=== PATIENT | female | born 1955 | race Caucasian/White ===

== ENCOUNTER 2023-03-29 08:46 | Outpatient (REF) | payer OTHER, SELFPAY ==
[2023-03-29 11:17] LABS: MANUAL DIFF FLAG NO
[2023-03-29 11:40] LABS: Basophils Percent Auto 0.7 % (0-2); Eosinophils Absolute Auto 0.1 X10*3/uL (0.0-0.4); Eosinophils Percent Auto 2.2 % (0-4); Hematocrit 42.1 % (37.0-47.0); Hemoglobin 13.9 g/dl (12.0-16.0); Imm Gran Abs Auto 0.01 X10*3/uL (0.00-0.03); Imm Gran Pct Auto 0.2 % (0.0-0.4); Lymphocytes Absolute Auto 1.9 X10*3/uL (1.2-4.9); Lymphocytes Percent Auto 41.9 % (20-40); Mean Corpuscular Hemoglobin 33.4 pg (27.0-33.0); Mean Corpuscular Volume 101.2 fL (80.0-98.0); Mean Platelet Volume 10.8 fL (9.4-12.3); Monocytes Absolute Auto 0.5 X10*3/uL (0.1-1.2); Monocytes Percent Auto 10.4 % (2-11); Neutrophils Percent Auto 44.6 % (45-73); Platelet Count 260 X10*3/uL (160-400); Red Blood Count 4.16 X10*6/uL (4.20-5.50); Red Cell Distribution Width 14.4 % (11.0-16.0); White Blood Count 4.5 X10*3/uL (4.8-10.8)
[2023-03-29 12:06] LABS: Alanine Aminotransferase 20 U/L (0-31); Albumin Level 4.4 g/dL (3.5-5.0); Alkaline Phosphatase 59 U/L (39-117); Anion Gap 12 (12-20); Aspartate Amino Transferase 23 U/L (5-31); Bilirubin Total 0.6 mg/dL (0.0-1.0); Blood Urea Nitrogen 16 mg/dL (9-16); Calcium 9.9 mg/dL (8.4-10.2); Carbon Dioxide 27 mmol/L (22-29); Chloride 107 mmol/L (96-108); Cholesterol 287 mg/dL; Estimated Glomerular Filt Rate > 60; Glucose Fasting 99 mg/dL (60-99); HDL Cholesterol 92 mg/dL; LDL Cholesterol Calculated 171 mg/dl; Potassium 3.8 mmol/L (3.3-5.1); Sodium 142 mmol/L (135-145); TSH reflex Free T4 0.99 uIU/mL (0.32-4.0); Total Protein 7.4 g/dL (6.5-8.0); Triglycerides 122 mg/dL; Vitamin D 25-OH Total 55.8 ng/mL (>30)
[2023-03-29 12:15] LABS: Vitamin B12 375 pg/mL (200-900)
== END 2023-03-29 08:47 | disposition home or self-care (01) ==
LOC: HO.HMGCLDS 08:46
PROVIDERS: PCP Internal Medicine; Visit Provider Internal Medicine
DX: Z00.00 Encounter for general adult medical examination without abnormal findings (principal); E53.8 Deficiency of other specified B group vitamins; J42 Unspecified chronic bronchitis; E78.5 Hyperlipidemia, unspecified
CPT/HCPCS: 36415; 80053; 80061; 82306; 82607; 84443; 85025

== ENCOUNTER 2023-04-12 07:25 | Outpatient (REF) | payer OTHER, SELFPAY ==
--- NOTE | ~2023-04-12 | MM_ITS ---
EXAMINATION: MM SCREENING DIGITAL BREAST TOMOSYNTHESIS, BILATERAL CLINICAL INFORMATION: Screening. Asymptomatic. The lifetime risk of breast cancer based on the Tyrer-Cuzick Model is 5%. COMPARISON: Mammography: 07/10/2020, 01/03/2019 TECHNIQUE: Digital breast tomosynthesis is performed in both the craniocaudal and mediolateral oblique views along with computer-aided detection (CAD). Synthesized 2D images are generated from the tomosynthesis. FINDINGS: There are scattered areas of fibroglandular density (ACR BI-RADS breast composition Category b). Breast tissue composition borders on predominantly fatty. Background stromal and fibroglandular densities are similar to prior exam and there is no significant mass or architectural abnormality or abnormal calcifications. The axilla and skin contours are unremarkable. MM/MM tomosynthesis screening BI IMPRESSION: No mammographic evidence of malignancy. ASSESSMENT: BI-RADS 1: Negative RECOMMENDATION: Routine annual mammography screening. This patient's information was entered into a reminder system with a target due date for their next mammogram.
--- NOTE | ~2023-04-12 | MM_ITS ---
EXAMINATION: BONE DENSITOMETRY CLINICAL INDICATION: Age-related osteoporosis without current pathological fracture. COMPARISON: Baseline BD dated 02/08/2018. TECHNIQUE: Using a Loaded [employer] DXA System (software version: 13.1) manufactured by [employer], dual-energy x-ray absorptiometry was performed of the lumbar spine and left hip. The images are of good technical quality. Summary results are attached. FINDINGS: LEFT FEMUR, NECK: Current: BMD 0.641 g/cm2, Z-score -1.5, T-score -2.9, osteoporosis. Baseline: BMD 0.777 g/cm2. LEFT FEMUR, TOTAL: Current: BMD 0.741 g/cm2, Z-score -1.1, T-score -2.1, osteopenia, 5.8% decrease from baseline (<5% change is not significant). Baseline: BMD 0.787 g/cm2. AP SPINE L1-L3 (excluding L4): The data of L1-L4 has been changed to exclude the L4 vertebral body, because degenerative changes at this level may cause overestimation of lumbar spine density. Current: BMD 0.936 g/cm2, Z-score -0.6, T-score -2.0, osteopenia, 0.1% decrease from baseline (<5% change is not significant). Baseline: BMD 0.937 g/cm2. IDENTIFIED RISK FACTORS: Early menopause, secondary osteoporosis, osteoporosis, history of fracture (adult), height loss, low calcium intake, glucocorticoids (chronic). HISTORY OF FRACTURE: Ankle. MEDICATIONS: Calcium supplements or multivitamin, vitamin D. MM/XR DEXA axial skeleton IMPRESSION: 1. DIAGNOSIS: Osteoporosis based on the lowest T-score value of -2.9 in the femoral neck applying World Health Organization criteria. 2. 10-YEAR FRACTURE RISK PREDICTION, FRAX: According to the guidelines, FRAX calculation should only be performed on patients in the osteopenia bone density category. Therefore, FRAX was not performed on this patient. 3. Treatment Recommendations: NOF guidelines recommend consideration for treatment in postmenopausal women and men age 50 and older presenting with the following: -A hip or vertebral (clinical or morphometric) fracture. -T-score less than or equal to -2.5 at the femoral neck or spine after appropriate evaluation to exclude secondary causes. -Low bone mass at the hip or spine and a 10-year fracture probability by FRAX of greater than or equal to 3% for hip fracture or greater than or equal to 20% for major osteoporotic fracture based on the [place] adapted WHO algorithm. 4. Other Recommendations: All treatment decisions require clinical judgment and consideration of individual patient factors, including patient preferences, comorbidities, previous drug use, risk factors not captured in the FRAX model (e.g. frailty, falls, vitamin D deficiency, increased bone turnover, interval significant decline in bone density) and possible under or overestimation of fracture risk by FRAX. Additional medical evaluation for secondary cause of low bone mineral density may be appropriate. FUTURE SCAN RECOMMENDATION: People with diagnosed cases of osteoporosis or at high risk for fracture should have regular bone mineral density tests. For patients eligible for Medicare, routine testing is allowed once every 2 years. The testing frequency can be increased to one year for patients who have rapidly progressing disease, those who are receiving or discontinuing medical therapy to restore bone mass, or have additional risk factors.
== END 2023-04-12 07:26 | disposition home or self-care (01) ==
LOC: HO.MAMMO 07:25
PROVIDERS: PCP Internal Medicine; Visit Provider Internal Medicine
DX: Z12.31 Encounter for screening mammogram for malignant neoplasm of breast (principal); Z13.820 Encounter for screening for osteoporosis; Z78.0 Asymptomatic menopausal state; M81.0 Age-related osteoporosis without current pathological fracture
CPT/HCPCS: 77063; 77067; 77080

== ENCOUNTER 2024-05-06 07:11 | Outpatient (REF) | payer OTHER, SELFPAY ==
[2024-05-06 10:14] LABS: MANUAL DIFF FLAG NO
[2024-05-06 10:19] LABS: Basophils Absolute Auto 0.1 X10*3/uL (0.0-0.2); Eosinophils Absolute Auto 0.2 X10*3/uL (0.0-0.4); Eosinophils Percent Auto 2.9 % (0-4); Hematocrit 40.4 % (37.0-47.0); Hemoglobin 13.5 g/dl (12.0-16.0); Imm Gran Abs Auto 0.02 X10*3/uL (0.00-0.03); Imm Gran Pct Auto 0.3 % (0.0-0.4); Lymphocytes Absolute Auto 2.7 X10*3/uL (1.2-4.9); Lymphocytes Percent Auto 46.3 % (20-40); Mean Corpuscular HGB Conc 33.4 g/dl (31.0-35.0); Mean Corpuscular Hemoglobin 34.1 pg (27.0-33.0); Mean Platelet Volume 10.6 fL (9.4-12.3); Monocytes Absolute Auto 0.5 X10*3/uL (0.1-1.2); Monocytes Percent Auto 9.2 % (2-11); Neutrophils Absolute Auto 2.3 x10*3/uL (2.0-8.3); Neutrophils Percent Auto 40.3 % (45-73); Platelet Count 250 X10*3/uL (160-400); Red Blood Count 3.96 X10*6/uL (4.20-5.50); White Blood Count 5.8 X10*3/uL (4.8-10.8)
[2024-05-06 10:47] LABS: Alanine Aminotransferase 38 U/L (0-31); Albumin Level 4.3 g/dL (3.5-5.0); Alkaline Phosphatase 69 U/L (39-117); Anion Gap 15 (12-20); Aspartate Amino Transferase 33 U/L (5-31); Bilirubin Total 0.4 mg/dL (0.0-1.0); Blood Urea Nitrogen 19 mg/dL (9-16); Calcium 9.8 mg/dL (8.4-10.2); Carbon Dioxide 25 mmol/L (22-29); Chloride 107 mmol/L (96-108); Cholesterol 182 mg/dL (<200); Estimated Glomerular Filt Rate > 60; Glucose Fasting 95 mg/dL (60-99); HDL Cholesterol 78 mg/dL (>40); LDL Cholesterol Calculated 77 mg/dL (<100); Sodium 143 mmol/L (135-145); Total Protein 6.9 g/dL (6.5-8.0); Triglycerides 135 mg/dL (<150)
[2024-05-06 10:48] LABS: TSH reflex Free T4 2.47 uIU/mL (0.32-4.0); Vitamin D 25-OH Total 59.8 ng/mL (>30)
[2024-05-06 12:48] LABS: Vitamin B12 258 pg/mL (200-900)
== END 2024-05-06 07:12 | disposition home or self-care (01) ==
LOC: HO.HMGCLDS 07:11
PROVIDERS: PCP Internal Medicine; Visit Provider Internal Medicine
DX: Z00.00 Encounter for general adult medical examination without abnormal findings (principal); E78.5 Hyperlipidemia, unspecified; E53.8 Deficiency of other specified B group vitamins
CPT/HCPCS: 36415; 80053; 80061; 82306; 82607; 84443; 85025

== ENCOUNTER 2024-05-08 07:52 | Outpatient (REF) | payer OTHER, SELFPAY ==
--- NOTE | ~2024-05-08 | MM_ITS ---
EXAMINATION: MM SCREENING DIGITAL BREAST TOMOSYNTHESIS, BILATERAL CLINICAL INFORMATION: Screening. Asymptomatic. The patient is status post bilateral breast reduction. COMPARISON: Mammography: This study is compared with prior exams dating back to 2019. TECHNIQUE: Digital breast tomosynthesis is performed in both the craniocaudal and mediolateral oblique views along with computer-aided detection (CAD). Synthesized 2D images are generated from the tomosynthesis. FINDINGS: The breasts are almost entirely fatty (ACR BI-RADS breast composition Category a). There are no significant masses, abnormal calcifications, or other abnormalities. MM/MM tomosynthesis screening BI IMPRESSION: No mammographic evidence of malignancy. ASSESSMENT: BI-RADS BI-RADS 1 - Negative RECOMMENDATION: Routine annual mammography screening. 1 year F/U This examination should not preclude the clinical evaluation of a suspicious palpable abnormality. This patient's information was entered into a reminder system with a target due date for their next mammogram.
== END 2024-05-08 07:53 | disposition home or self-care (01) ==
LOC: HO.MAMMO 07:52
PROVIDERS: PCP Internal Medicine; Visit Provider Internal Medicine
DX: Z12.31 Encounter for screening mammogram for malignant neoplasm of breast (principal)
CPT/HCPCS: 77063; 77067

== ENCOUNTER → 2024-05-08 08:15 | Outpatient (BNV) | payer OTHER, SELFPAY | PROVIDERS: PCP Internal Medicine; Visit Provider Radiology Diagnostic Radiology | DX: Z12.31 Encounter for screening mammogram for malignant neoplasm of breast (principal) | CPT/HCPCS: 77063; 77067 ==

== ENCOUNTER 2024-05-08 10:32 | Outpatient (AMB) | payer OTHER, SELFPAY ==
[2024-05-08 10:36] VITALS: BP 134/78; PULSE 91; O2SAT 97; BMI 33.8
--- NOTE | 2024-05-08 10:36 | A.OFFPC_ITS ---
Vital Signs 05/08/24 10:36 Height 5 ft Weight 173 lb BMI 33.8 BP 134/78 Blood Pressure Location Lt brachial Position Sitting Pulse 91 Pulse Source Pulse Oximeter Pulse Oximetry (%) 97 Oxygen Delivery Method Room Air Intake Visit Reasons: PE celina from 04/09/24 Intake Note: Pt is here today for PE. Allergies No Known Allergies Allergy (Mild, Verified 05/08/24 10:39) NONE Medication List - Last Reconciled 05/08/24 by Elvia Bellamy MD alendronate 70 mg PO QWEEK aspirin 81 mg PO DAILY multivitamin 1 tab PO DAILY rosuvastatin 20 mg PO DAILY Tobacco use date assessed: 05/08/24 Fall risk assessment: 1 Fall in past year Last assessed Fall Risk: 05/08/24 Dental Screening Dental Screen Date: 05/08/24 Did you have a dental visit in the last 12 months?: Yes Did you have a dental problem in the last 6 months where you did not have access to dental care?: No Was dental information given to patient?: Patient has dentist HPI PE celina from 04/09/24 HPI Details Pt presents for PE. Pt c/o worsening positional vertigo and difficulty with balance. She fell of the chair at work. Pt denies diplopia, weakness in extremities, headaches. Patient complains of feeling depressed and not motivated to exercise because of her 's health issues and he used to exercise with her regularly. Patient denies change in her sleep pattern, appetite or suicide ideation PFSH Medical History (Updated 05/08/24 @ 11:20 by Elvia Bellamy MD) Normal pelvic exam Hx of mammogram Annual physical exam OA (osteoarthritis) of knee Anxiety Chronic bronchitis Sciatica of right side Depression Hyperlipidemia Osteoporosis Chronic asthma Surgical History H/O colonoscopy S/P aneurysm repair History of repair of rotator cuff History of knee surgery History of adenoidectomy History of tonsillectomy Family History Father Cancer Lung cancer Substance use disorder Mother FH: HTN (hypertension) Cancer Substance use disorder Brother Substance use disorder Social History Housing: House Patient Tobacco Use Status: Former Tobacco user e-Cigarette/Vaping Use: Never Used service: No Current occupational status: employed Cognitive needs: No Hearing needs: No Vision needs: No Questionnaire PHQ-9 Over the last 2 weeks, how often have you been bothered by any of the following problems? 1. Little interest or pleasure in doing things: several days 2. Feeling down, depressed, or hopeless: several days 3. Trouble falling or staying asleep, or sleeping too much: not at all 4. Feeling tired or having little energy: not at all 5. Poor appetite or overeating: several days 6. Feeling bad about yourself - or that you are a failure or have let yourself or your family down: several days 7. Trouble concentrating on things, such as reading the newspaper or watching television: not at all 8. Moving or speaking so slowly that other people could have noticed. Or the opposite - being so fidgety or restless that you have been moving around a lot more than usual: not at all 9. Thoughts that you would be better off or of hurting yourself in some way: not at all Total score: 4 Depression Screening Interpretation: Negative Depression Screening Done: Yes 66953 - PHQ-9 Billing: Yes Source: Developed by Drs. Kishan Awad, Felicia Awad, Steve Hernandez and colleagues, with an educational dayanara from [employer]. Thrive Questionnaire Date Thrive assessed: 05/08/24 I am a: Patient What is your living situation today?: I have a steady place to live Within the past 12 months, did the food you bought not last and you didn't have the money to get more?: Never true Within the past 12 months, did you worry whether your food would run out before you got money to buy more?: Never true Do you have trouble paying for medicines?: No Do you have trouble getting transportation to medical appointments?: No Do you have trouble paying your heating and electricity bill?: No Do you have trouble taking care of your child, family member or friend?: No Do you have trouble with day-to-day activities such as bathing, preparing meals, shopping, managing finances, etc.?: No Are you currently unemployed and looking for a job?: No Are you interested in more education?: Yes Please select the resources that you would like help with: Housing/Group Home Currently or been in a relationship where the following occur: No concerns reported THRIVE Score: 0 AUDIT C Alcohol Use Questionnaire (AUDIT-C) 1. How often do you have a drink containing alcohol?: 2-3 times a week 2. How many drinks containing alcohol do you have on a typical day when you are drinking?: 1 or 2 3. How often do you have six or more drinks on one occasion?: Never Total Score: 3 CLAY-7 AMB Questionnaire CLAY-7 Date CLAY - 7 assessed: 05/08/24 Feeling nervous, anxious, or on edge: 1 = Several days Not being able to stop or control worryin = Several days Worrying too much about different things: 1 = Several days Trouble relaxin = Several days Being so restless that it is hard to sit still: 1 = Several days Becoming easily annoyed or irritable: 1 = Several days Feeling afraid as if something awful might happen: 0 = Not at all Total CLAY-7 score (0-4 normal; 5-9 mild; 10-14 moderate; 15-21 severe): 6 Source: Developed by Drs. Kishan Awad, Felicia Awad, Steve Hernandez and colleagues, with an educational dayanara from [employer]. Review of Systems Const All systems reviewed & are unremarkable except as noted in HPI and below Eyes Reports no additional complaints ENT Reports no additional complaints Card Reports no additional complaints Resp Reports no additional complaints GI Reports no additional complaints Reports no additional complaints Physical exam (Primary Care) Vital Signs: Last Vital Signs Pulse 91 05/08/24 10:36 BP 134/78 05/08/24 10:36 Pulse Ox 97 05/08/24 10:36 Oxygen Delivery Method Room Air 05/08/24 10:36 BMI result Body Mass Index 33.8 Tobacco/Smoking Status: Tobacco use Status Tobacco use date assessed 05/08/24 05/08/24 10:41 Patient Tobacco Use Status Former Tobacco user 05/08/24 10:41 e-Cigarette/Vaping Use Never Used 05/08/24 10:41 PHQ-9: PHQ-9 Score PHQ-9: Total score 4 05/08/24 10:41 Depression Screening Interpretation: Negative Thrive Assessment: Date of Thrive Assessment Date Thrive assessed 05/08/24 05/08/24 10:41 Currently or been in a relationship where the following occur: No concerns reported Const General: no acute distress HENMT Head: Yes normal to inspection Ears: hearing grossly normal bilaterally Face and sinus: Yes normal facial exam Mouth: Normal oral and palatal mucosa present Eyes General: appearance normal, both eyes and all related structures Neck Neck: Yes no lymphadenopathy and Yes supple Resp Effort & Inspection: normal respiratory effort Auscultation: clear to auscultation bilaterally Cardio Rhythm: regular rhythm Heart sounds: S1 normal heart sound present and S2 normal heart sound present GI Inspection: Yes normal to inspection Palpation (GI): Soft to palpation Percussion: Yes normal to percussion Auscultation: normal bowel sounds Neuro General: CN's II-XI intact bilaterally Cognition (Neuro): normal cognition Gait exam (Neuro): Ataxic gait present Motor exam (neuro): 5/5 motor strength present throughout Romberg Test: Positive Extrem General: Yes no clubbing, cyanosis or edema Assessment and Plan Assessment & Plan (1) Hyperlipidemia: Code(s): E78.5 - Hyperlipidemia, unspecified Plan: Continue crestor (2) Annual physical exam: Code(s): Z00.00 - Encounter for general adult medical examination without abnormal findings Plan: Well-balanced diet regular exercise discussed with the patient she is up-to-date with the mammogram colonoscopy and DEXA (3) Chronic bronchitis: Comment: Mild, patient does not use inhalers Code(s): J42 - Unspecified chronic bronchitis (4) Central positional vertigo: Comment: worsening, positive Romberg Code(s): H81.4 - Vertigo of central origin Plan: obtain brain MRI to evaluate for cerebellar pathology like CVA or tumor (5) Anxiety: Code(s): F41.9 - Anxiety disorder, unspecified Plan: Stress management discussed with the patient she was advised to start regular physical activity and Zoloft 25 mg for 1st week then increase to 50 mg will be started. Follow-up in 2 months Orders: Orders PT Evaluation and Treatment Today H81.4 - Vertigo of central origin MR head/brain wo con Today R29.818 - Other symptoms and signs involving the nervous system Medications: New sertraline 1/2 tabl for 1 week, then 1 tabl qd 50 mg PO DAILY 30 tabs 2RF albuterol sulfate 90 mcg/actuation 2 puffs inhalation Q6H PRN 6.7 grams 1RF shortness of breath or wheezing Coding Level of Care Code Est Pt Prev Care >65y(58432) Diagnoses Hyperlipidemia E78.5 Annual physical exam Z00.00 Chronic bronchitis J42 Central positional vertigo H81.4 Anxiety F41.9
== END 2024-05-08 11:11 | disposition home or self-care (01) ==
PROVIDERS: PCP Internal Medicine; Visit Provider Internal Medicine
DX: E78.5 Hyperlipidemia, unspecified (principal); Z00.00 Encounter for general adult medical examination without abnormal findings; J42 Unspecified chronic bronchitis; H81.4 Vertigo of central origin; F41.9 Anxiety disorder, unspecified
CPT/HCPCS: 99397

== ENCOUNTER 2024-08-17 09:16 | Outpatient (REF) | payer OTHER, SELFPAY ==
--- NOTE | ~2024-08-17 | MR_ITS ---
EXAMINATION: MR BRAIN WITHOUT CONTRAST CLINICAL INFORMATION: Positive cerebellar signs COMPARISON: None available. TECHNIQUE: MRI of the brain was obtained using routine sequences without contrast. FINDINGS: There is mild periventricular and subcortical white matter hyperintensity most likely representing microangiopathic disease. Incidental cavum septum pellucidum. There is no focus of reduced diffusivity or abnormal susceptibility artifact within the brain parenchyma. The midline structures including the corpus callosum, cerebellar vermis, and pituitary gland are normal in appearance. There is no acute intracranial hemorrhage, acute ischemic changes, mass, mass effect, or extra-axial fluid collection. There is no midline shift or hydrocephalus. The basal subarachnoid cisterns and cerebral sulci are not effaced. The major intracranial flow voids are present, and grossly unremarkable. MR/MR head/brain wo con IMPRESSION: 1. Mild microangiopathic disease. 2. No acute intracranial abnormality. Electronically signed by: Anastasiya Fernandez MD 08/17/2024 11:37 AM EDT
== END 2024-08-17 09:17 | disposition home or self-care (01) ==
LOC: HO.MRI 09:16
PROVIDERS: PCP Internal Medicine; Visit Provider Internal Medicine
DX: R29.818 Other symptoms and signs involving the nervous system (principal)
CPT/HCPCS: 70551

== ENCOUNTER 2024-09-04 10:57 | Outpatient (AMB) | payer OTHER, SELFPAY ==
--- NOTE | 2024-09-04 10:58 | MHC.PC.OV ---
Vital Signs 09/04/24 10:59 Height 5 ft Weight 174 lb BMI 34.0 BP 134/78 Blood Pressure Location Lt brachial Position Sitting Pulse 81 Pulse Source Pulse Oximeter Pulse Oximetry (%) 98 Oxygen Delivery Method Room Air Intake Visit Reasons: 3 month follow up Intake Note: Pt is here today for 3 months follow up visit. Pt states that she is still having vertigo episodes. Allergies No Known Allergies Allergy (Mild, Verified 09/04/24 11:03) NONE Medication List - Last Reconciled 09/04/24 by Elvia Bellamy MD albuterol sulfate 90 mcg/actuation 2 puffs inhalation Q6H PRN alendronate 70 mg PO QWEEK aspirin 81 mg PO DAILY multivitamin 1 tab PO DAILY rosuvastatin 20 mg PO DAILY sertraline 50 mg PO DAILY Tobacco use date assessed: 09/04/24 Dental Screening Dental Screen Date: 05/08/24 HPI 3 month follow up HPI Details Pt presents for chronic anxiety, better on Zoloft. Patient has been seeing counselor once a month. hyperlipid is stable on Crestor. Patient reports persistent positional vertigo almost on daily basis but denies nausea or vomiting change in balance or vision [facility] Medical History (Updated 09/04/24 @ 11:35 by Elvia Bellamy MD) Normal pelvic exam Hx of mammogram Annual physical exam OA (osteoarthritis) of knee Anxiety Chronic bronchitis Sciatica of right side Depression Hyperlipidemia Osteoporosis Chronic asthma Surgical History H/O colonoscopy S/P aneurysm repair History of repair of rotator cuff History of knee surgery History of adenoidectomy History of tonsillectomy Family History Father Cancer Lung cancer Substance use disorder Mother FH: HTN (hypertension) Cancer Substance use disorder Brother Substance use disorder Social History Housing: House Patient Tobacco Use Status: Former Tobacco user e-Cigarette/Vaping Use: Never Used service: No Current occupational status: employed Cognitive needs: No Hearing needs: No Vision needs: No Questionnaire PHQ-9 Over the last 2 weeks, how often have you been bothered by any of the following problems? 1. Little interest or pleasure in doing things: several days 2. Feeling down, depressed, or hopeless: several days 3. Trouble falling or staying asleep, or sleeping too much: not at all 4. Feeling tired or having little energy: more than half the days 5. Poor appetite or overeating: more than half the days 6. Feeling bad about yourself - or that you are a failure or have let yourself or your family down: several days 7. Trouble concentrating on things, such as reading the newspaper or watching television: not at all 8. Moving or speaking so slowly that other people could have noticed. Or the opposite - being so fidgety or restless that you have been moving around a lot more than usual: not at all 9. Thoughts that you would be better off or of hurting yourself in some way: not at all Total score: 7 Depression Screening Interpretation: Negative Depression Screening Done: Yes 70194 - PHQ-9 Billing: Yes Source: Developed by Drs. Kishan Awad, Felicia Awad, Steve Hernandez and colleagues, with an educational dayanara from [employer]. Thrive Questionnaire Date Thrive assessed: 05/06/24 I am a: Patient What is your living situation today?: I have a steady place to live Within the past 12 months, did the food you bought not last and you didn't have the money to get more?: Never true Within the past 12 months, did you worry whether your food would run out before you got money to buy more?: Never true Do you have trouble paying for medicines?: No Do you have trouble getting transportation to medical appointments?: No Do you have trouble paying your heating and electricity bill?: No Do you have trouble taking care of your child, family member or friend?: No Do you have trouble with day-to-day activities such as bathing, preparing meals, shopping, managing finances, etc.?: No Are you currently unemployed and looking for a job?: No Are you interested in more education?: Yes Please select the resources that you would like help with: None Currently or been in a relationship where the following occur: No concerns reported THRIVE Score: 0 CLAY-7 AMB Questionnaire CLAY-7 Date CLAY - 7 assessed: 05/08/24 Source: Developed by Drs. Kishan Awad, Felicia Awad, Steve Hernandez and colleagues, with an educational dayanara from [employer]. Review of Systems Const All systems reviewed & are unremarkable except as noted in HPI and below ENT Reports no additional complaints Card Reports no additional complaints Resp Reports no additional complaints GI Reports no additional complaints Reports no additional complaints Physical exam (Primary Care) Vital Signs: Last Vital Signs Pulse 81 09/04/24 10:59 BP 134/78 09/04/24 10:59 Pulse Ox 98 09/04/24 10:59 Oxygen Delivery Method Room Air 09/04/24 10:59 BMI result Body Mass Index 34.0 Tobacco/Smoking Status: Tobacco use Status Tobacco use date assessed 09/04/24 09/04/24 11:05 Patient Tobacco Use Status Former Tobacco user 09/04/24 11:05 e-Cigarette/Vaping Use Never Used 09/04/24 11:05 Depression Screening Interpretation: Negative Thrive Assessment: Date of Thrive Assessment Date Thrive assessed 05/06/24 09/04/24 11:05 Currently or been in a relationship where the following occur: No concerns reported Const General: no acute distress HENMT Ears: hearing grossly normal bilaterally Mouth: Normal oral and palatal mucosa present Resp Effort & Inspection: normal respiratory effort Auscultation: wheezes Cardio Rhythm: regular rhythm Heart sounds: S1 normal heart sound present and S2 normal heart sound present Coding Level of Care Code Est Pt Level 4 (02932) Complex EM visit Add On G2211 Diagnoses Vertigo R42 Hyperlipidemia E78.5 Anxiety F41.9 Vitamin D deficiency E55.9 Chronic bronchitis J42 Additional Codes PHQ-9 - 99967 - PHQ-9 Billing: Yes ([id number]) Assessment & Plan Assessment & Plan (1) Vertigo: Code(s): R42 - Dizziness and giddiness Category: Medical Plan: refer to PT (2) Hyperlipidemia: Code(s): E78.5 - Hyperlipidemia, unspecified Category: Medical Plan: Continue crestor (3) Anxiety: Code(s): F41.9 - Anxiety disorder, unspecified Category: Medical Plan: Continue Zoloft and counseling (4) Vitamin D deficiency: Code(s): E55.9 - Vitamin D deficiency, unspecified Category: Medical Plan: Continue vitamin-D supplement (5) Chronic bronchitis: Comment: Mild, patient does not use inhalers Code(s): J42 - Unspecified chronic bronchitis Category: Medical Plan: restart Breo and continue albuterol p.r.n. Orders: Orders Comprehensive [place]. Panel Fast 9 Months E55.9 - Vitamin D deficiency, unspecified, E78.5 - Hyperlipidemia, unspecified, F41.9 - Anxiety disorder, unspecified Complete Blood Count Auto Diff 9 Months E55.9 - Vitamin D deficiency, unspecified, E78.5 - Hyperlipidemia, unspecified, F41.9 - Anxiety disorder, unspecified Vitamin D 25-OH Total 9 Months E55.9 - Vitamin D deficiency, unspecified, E78.5 - Hyperlipidemia, unspecified, F41.9 - Anxiety disorder, unspecified PT Evaluation and Treatment Today R42 - Dizziness and giddiness Lipid Panel 9 Months E55.9 - Vitamin D deficiency, unspecified, E78.5 - Hyperlipidemia, unspecified, F41.9 - Anxiety disorder, unspecified TSH reflex Free T4 9 Months E55.9 - Vitamin D deficiency, unspecified, E78.5 - Hyperlipidemia, unspecified, F41.9 - Anxiety disorder, unspecified Medications: New Breo Ellipta 100-25 mcg/dose (fluticasone furoate-vilanterol) 1 inh inhalation DAILY 60 ea 0RF NS Refilled rosuvastatin 20 mg PO DAILY 90 tabs 3RF alendronate 70 mg PO QWEEK 10 tabs 3RF sertraline 50 mg PO DAILY 90 tabs 3RF albuterol sulfate 90 mcg/actuation 2 puffs inhalation Q6H PRN 6.7 grams 1RF shortness of breath or wheezing
[2024-09-04 10:59] VITALS: BP 134/78; PULSE 81; O2SAT 98; BMI 34.0
== END 2024-09-04 11:48 | disposition home or self-care (01) ==
PROVIDERS: PCP Internal Medicine; Visit Provider Internal Medicine
DX: R42 Dizziness and giddiness (principal); E78.5 Hyperlipidemia, unspecified; F41.9 Anxiety disorder, unspecified; J42 Unspecified chronic bronchitis; E55.9 Vitamin D deficiency, unspecified

== ENCOUNTER → 2024-09-04 10:57 | Outpatient (BNVA) | payer OTHER, SELFPAY | PROVIDERS: PCP Internal Medicine; Visit Provider Internal Medicine | DX: R42 Dizziness and giddiness (principal); E78.5 Hyperlipidemia, unspecified; F41.9 Anxiety disorder, unspecified; E55.9 Vitamin D deficiency, unspecified; J42 Unspecified chronic bronchitis; Z79.899 Other long term (current) drug therapy | CPT/HCPCS: 96127 ==

== ENCOUNTER 2024-11-04 08:05 | Outpatient (AMB) | payer OTHER, SELFPAY ==
[2024-11-04 08:06] VITALS: BP 136/80; PULSE 75; TEMP 36.6; O2SAT 98
--- NOTE | 2024-11-04 08:06 | MHC.OFFWIV ---
Intake Vital Signs 11/04/24 08:06 Height 5 ft BP 136/80 Blood Pressure Location Rt brachial Position Sitting Pulse 75 Pulse Source Pulse Oximeter Temp 97.8 F Temp Source Oral Pulse Oximetry (%) 98 Oxygen Delivery Method Room Air Intake Visit Reasons: EP RT pinky toe injury, cold symptoms Intake Note: Pt is here today for a walk in visit. Pt c/o broken R pinky toe. Pt also states that she is very congested and cough. Patient Tobacco Use Status: Former Tobacco user Allergies No Known Allergies Allergy (Mild, Verified 11/04/24 08:10) NONE HPI HPI Comments History of Present Illness Details 69 y/o female patient who presents to the walk in clinic with c/o injury right fifth toe that happened back in September. Pt Hit her fifth toe against the chair when she was exercising. She has tried Ice/Het, NSAIDs and rest with no relief. Pain worse with closed shoes and walking for prolonged period of time. Pt is an average Skier. Pt also c/o persistent cough associated with wheezing and chest tightness for 2 weeks. Denies fevers, chills, nausea or vomiting. [facility] Medical History (Updated 10/31/24 @ 16:50 by Genet Neely MD) Normal pelvic exam Hx of mammogram Annual physical exam OA (osteoarthritis) of knee Anxiety Chronic bronchitis Sciatica of right side Depression Hyperlipidemia Osteoporosis Chronic asthma Surgical History H/O colonoscopy S/P aneurysm repair History of repair of rotator cuff History of knee surgery History of adenoidectomy History of tonsillectomy Family History Father Cancer Lung cancer Substance use disorder Mother FH: HTN (hypertension) Cancer Substance use disorder Brother Substance use disorder Social History Housing: House Patient Tobacco Use Status: Former Tobacco user e-Cigarette/Vaping Use: Never Used service: No Current occupational status: employed Cognitive needs: No Hearing needs: No Vision needs: No Review of Systems Const All systems reviewed & are unremarkable except as noted in HPI and below Physical Exam Vital Signs: Last Vital Signs Temp 97.8 F 11/04/24 08:06 Pulse 75 11/04/24 08:06 BP 136/80 11/04/24 08:06 Pulse Ox 98 11/04/24 08:06 Oxygen Delivery Method Room Air 11/04/24 08:06 Const General: cooperative and no acute distress Nutritional Appearance: overweight Orientation/consciousness: patient oriented x3 Resp Effort & Inspection: normal respiratory effort and able to speak in complete sentences Auscultation: no crackles, no rales, no rhonchi and wheezes Cardio Heart sounds: S1 normal heart sound present and S2 normal heart sound present Neuro General: patient oriented x3, gait normal and moves all extremities Extrem Right lower extremity: normal to inspection and foot Details: normal capillary refill, normal to inspection, tenderness (Mild tenderness fifth Toe. No color, no swelling), toes with normal ROM and no edema; no unusual warmth and no crepitus Left lower extremity: normal to inspection Psych Speech and movement: Normal speech and movement present Assessment & Plan Assessment & Plan (1) Cough: Code(s): R05.9 - Cough, unspecified Qualifiers: Cough type: acute Qualified Code(s): R05.1 - Acute cough Plan: Ordered Chest Xray Continue with prescribed Inhalers OTC cough remedies. (2) Crushing injury of fifth toe, right: Code(s): S97.121A - Crushing injury of right lesser toe(s), initial encounter Qualifiers: Encounter type: initial encounter Qualified Code(s): S97.121A - Crushing injury of right lesser toe(s), initial encounter Plan: Ordered Xray Ice/Hot NSAIDs for pain relief Rest Orders: Orders XR chest 2V Today R05.9 - Cough, unspecified Referrals Orthopedics Referral S97.121A - Crushing injury of right lesser toe(s), initial encounter Medications: New benzonatate 100 mg PO TID 90 caps 0RF R05.1 - Acute cough ibuprofen 800 mg PO Q8H 60 tabs 0RF S97.121A - Crushing injury of right lesser toe(s), initial encounter Coding Level of Care Code Est Pt Level 4 (89304) Diagnoses Acute cough R05.1 Cough type: acute Crushing injury of fifth toe of right foot, initial encounter S97.121A Encounter type: initial encounter Time Spent (min) 20
== END 2024-11-04 09:18 | disposition home or self-care (01) ==
PROVIDERS: PCP Internal Medicine; Visit Provider Nurse Practitioner Family
DX: R05.1 Acute cough (principal); S97.121A Crushing injury of right lesser toe(s), initial encounter

== ENCOUNTER 2024-11-04 08:05 | Outpatient (REF) | payer OTHER, SELFPAY ==
--- NOTE | ~2024-11-04 | XR_ITS ---
EXAMINATION: XR FOOT 3 OR MORE VIEWS RIGHT HISTORY: S97.121A - Crushing injury of right lesser toe(s), initial encounter COMPARISON: There are no prior studies available for comparison. FINDINGS: Three views of the right foot are submitted. Osseous mineralization is normal. There is an acute minimally displaced intra-articular fracture of the base of the 5th proximal phalanx. Deformity of the head of the proximal phalanx of the 5th toe is likely congenital in nature or related to an old ununited united fracture. There is no dislocation. The joint spaces are preserved. The soft tissues are unremarkable. XR/XR foot RT min 3V IMPRESSION: Acute minimally displaced intra-articular fracture of the base of the proximal phalanx of the 5th toe. Electronically signed by: Kishan Larkin MD 11/04/2024 08:57 AM [facility]
--- NOTE | ~2024-11-04 | XR_ITS ---
EXAMINATION: XR CHEST CLINICAL INFORMATION: R05.9 - Cough, unspecified COMPARISON: Chest with left RIBS the 2018 TECHNIQUE: 2 views of the chest were obtained. FINDINGS: No significant abnormality is noted involving the heart, lungs, mediastinum, bony thorax or soft tissues. XR/XR chest 2V IMPRESSION: Unremarkable chest examination. Electronically signed by: Singh Ramirez MD 11/04/2024 08:59 AM [facility]
== END 2024-11-04 08:06 | disposition home or self-care (01) ==
LOC: HO.HMGCX 08:05
PROVIDERS: PCP Internal Medicine; Visit Provider Nurse Practitioner Family
DX: R05.1 Acute cough (principal); S97.121A Crushing injury of right lesser toe(s), initial encounter
CPT/HCPCS: 71046; 73630

== ENCOUNTER → 2024-11-04 08:35 | Outpatient (BNV) | payer OTHER, SELFPAY | PROVIDERS: PCP Internal Medicine; Visit Provider Radiology Diagnostic Radiology | DX: R05.9 Cough, unspecified (principal); S92.511A Displaced fracture of proximal phalanx of right lesser toe(s), initial encounter for closed fracture | CPT/HCPCS: 71046; 73630 ==

== ENCOUNTER 2025-01-01 07:46 | Outpatient (AMB) | payer OTHER, SELFPAY ==
--- NOTE | 2025-01-01 08:07 | MHC.PC.OV ---
Vital Signs 01/01/25 08:08 Height 5 ft Weight 178 lb BMI 34.8 BP 132/78 Blood Pressure Location Lt brachial Position Sitting Respiration 20 Pulse 75 Pulse Source Pulse Oximeter Pulse Oximetry (%) 98 Oxygen Delivery Method Room Air Intake Visit Reasons: Followup foot injury Intake Note: Jennifer is here today for a follow up visit on foot injury. Allergies No Known Allergies Allergy (Mild, Verified 01/01/25 08:14) NONE Medication List - Last Reconciled 01/01/25 by Elvia Bellamy MD albuterol sulfate 90 mcg/actuation 2 puffs inhalation Q6H PRN alendronate 70 mg PO QWEEK aspirin 81 mg PO DAILY benzonatate 100 mg PO TID Breo Ellipta 100-25 mcg/dose (fluticasone furoate-vilanterol) 1 inh inhalation DAILY NS ibuprofen 800 mg PO Q8H ibuprofen 800 mg PO Q8H multivitamin 1 tab PO DAILY rosuvastatin 20 mg PO DAILY sertraline 50 mg PO DAILY Tobacco use date assessed: 01/01/25 Fall risk assessment: No Falls in past year Last assessed Fall Risk: 01/01/25 Dental Screening Dental Screen Date: 01/01/25 Did you have a dental visit in the last 12 months?: Yes Did you have a dental problem in the last 6 months where you did not have access to dental care?: No Was dental information given to patient?: Patient has dentist HPI Followup foot injury HPI Details patient presents for the follow-up of right foot injury. She caught her right 5th toe on the chair in mid October and developed pain and swelling. Patient was seen in urgent care on November 04 and x-rays showed acute minimal in displaced intra articular fracture of the base of proximal phalanx of the 5th toe. Patient has been wearing a hard boot but was not able to ski during the season because of the pain and not able to wear a ski boot. Chronic asthma stable on Breo. [facility] Medical History (Updated 01/01/25 @ 15:15 by Elvia Bellamy MD) Normal pelvic exam Hx of mammogram Annual physical exam OA (osteoarthritis) of knee Anxiety Chronic bronchitis Sciatica of right side Depression Hyperlipidemia Osteoporosis Chronic asthma Surgical History H/O colonoscopy S/P aneurysm repair History of repair of rotator cuff History of knee surgery History of adenoidectomy History of tonsillectomy Family History Father Cancer Lung cancer Substance use disorder Mother FH: HTN (hypertension) Cancer Substance use disorder Brother Substance use disorder Social History Housing: House Patient Tobacco Use Status: Former Tobacco user e-Cigarette/Vaping Use: Never Used service: No Current occupational status: employed Cognitive needs: No Hearing needs: No Vision needs: No Questionnaire PHQ-9 Over the last 2 weeks, how often have you been bothered by any of the following problems? 1. Little interest or pleasure in doing things: several days 2. Feeling down, depressed, or hopeless: several days 3. Trouble falling or staying asleep, or sleeping too much: not at all 4. Feeling tired or having little energy: not at all 5. Poor appetite or overeating: several days 6. Feeling bad about yourself - or that you are a failure or have let yourself or your family down: several days 7. Trouble concentrating on things, such as reading the newspaper or watching television: not at all 8. Moving or speaking so slowly that other people could have noticed. Or the opposite - being so fidgety or restless that you have been moving around a lot more than usual: not at all 9. Thoughts that you would be better off or of hurting yourself in some way: not at all Total score: 4 Depression Screening Interpretation: Negative Depression Screening Done: Yes 81850 - PHQ-9 Billing: Yes Source: Developed by Drs. Kishan Awad, Felicia Awad, Steve Hernandez and colleagues, with an educational dayanara from [employer]. Thrive Questionnaire Date Thrive assessed: 01/01/25 I am a: Patient What is your living situation today?: I have a steady place to live Within the past 12 months, did the food you bought not last and you didn't have the money to get more?: Never true Within the past 12 months, did you worry whether your food would run out before you got money to buy more?: Never true Do you have trouble paying for medicines?: No Do you have trouble getting transportation to medical appointments?: No Do you have trouble paying your heating and electricity bill?: No Do you have trouble taking care of your child, family member or friend?: No Do you have trouble with day-to-day activities such as bathing, preparing meals, shopping, managing finances, etc.?: No Are you currently unemployed and looking for a job?: No Are you interested in more education?: No Please select the resources that you would like help with: None Currently or been in a relationship where the following occur: No concerns reported THRIVE Score: 0 AUDIT C Alcohol Use Questionnaire (AUDIT-C) 1. How often do you have a drink containing alcohol?: 2-3 times a week 2. How many drinks containing alcohol do you have on a typical day when you are drinking?: 1 or 2 3. How often do you have six or more drinks on one occasion?: Never Total Score: 3 CLAY-7 AMB Questionnaire CLAY-7 Date CLAY - 7 assessed: 05/08/24 Feeling nervous, anxious, or on edge: 0 = Not at all Not being able to stop or control worryin = More than half the days Worrying too much about different things: 2 = More than half the days Trouble relaxin = More than half the days Being so restless that it is hard to sit still: 1 = Several days Becoming easily annoyed or irritable: 1 = Several days Feeling afraid as if something awful might happen: 0 = Not at all Total CLAY-7 score (0-4 normal; 5-9 mild; 10-14 moderate; 15-21 severe): 8 Source: Developed by Drs. Kishan Awad, Felicia Awad, Steve Hernandez and colleagues, with an educational dayanara from [employer]. CLAY-7 Assessment Billing CLAY-7 Assessment Tool: CLAY-7 Assessment 43172 Review of Systems Const All systems reviewed & are unremarkable except as noted in HPI and below Eyes Reports no additional complaints ENT Reports no additional complaints Card Reports no additional complaints Resp Reports no additional complaints GI Reports no additional complaints Reports no additional complaints Physical exam (Primary Care) Vital Signs: Last Vital Signs Pulse 75 01/01/25 08:08 Resp 20 01/01/25 08:08 BP 132/78 01/01/25 08:08 Pulse Ox 98 01/01/25 08:08 Oxygen Delivery Method Room Air 01/01/25 08:08 BMI result Body Mass Index 34.8 Tobacco/Smoking Status: Tobacco use Status Tobacco use date assessed 01/01/25 01/01/25 08:15 Patient Tobacco Use Status Former Tobacco user 01/01/25 08:08 e-Cigarette/Vaping Use Never Used 01/01/25 08:08 PHQ-9: PHQ-9 Score PHQ-9: Total score 4 01/01/25 08:27 Depression Screening Interpretation: Negative Thrive Assessment: Date of Thrive Assessment Date Thrive assessed 01/01/25 01/01/25 08:15 Currently or been in a relationship where the following occur: No concerns reported Const General: no acute distress HENMT Head: Yes normal to inspection Resp Effort & Inspection: normal respiratory effort Auscultation: clear to auscultation bilaterally Cardio Rhythm: regular rhythm Heart sounds: S1 normal heart sound present and S2 normal heart sound present Extrem Other: Right 5th toe PIP joint slight tenderness and soft tissue swelling no erythema or warmth Coding Level of Care Code Est Pt Level 3 (08054) Diagnoses Chronic bronchitis J42 Toe fracture, right S92.911A Additional Codes CLAY-7 Assessment Billing - CLAY-7 Assessment Tool: CLAY-7 Assessment 53088 ([id number]) PHQ-9 - 04935 - PHQ-9 Billing: Yes ([id number]) Assessment & Plan Assessment & Plan (1) Chronic bronchitis: Comment: Controlled on Breo Code(s): J42 - Unspecified chronic bronchitis Category: Medical Plan: cont Breo (2) Toe fracture, right: Comment: 5th toe intra-articular fracture of the base of the proximal phalanx 11/04/2024 Code(s): S92.911A - Unspecified fracture of right toe(s), initial encounter for closed fracture Category: Medical Plan: Supportive care
[2025-01-01 08:08] VITALS: BP 132/78; PULSE 75; RESP 20; O2SAT 98; BMI 34.8
== END 2025-01-01 09:41 | disposition home or self-care (01) ==
LOC: HO.HMCC 07:47
PROVIDERS: PCP Internal Medicine; Visit Provider Internal Medicine
DX: J42 Unspecified chronic bronchitis (principal); S92.911A Unspecified fracture of right toe(s), initial encounter for closed fracture

== ENCOUNTER → 2025-01-01 07:46 | Outpatient (BNVA) | payer OTHER, SELFPAY | PROVIDERS: PCP Internal Medicine; Visit Provider Internal Medicine | DX: S92.911D Unspecified fracture of right toe(s), subsequent encounter for fracture with routine healing (principal); J42 Unspecified chronic bronchitis | CPT/HCPCS: 96127 ==

== ENCOUNTER 2025-05-14 09:12 | Outpatient (REF) | payer OTHER, SELFPAY ==
--- OUTSIDE RECORDS SUMMARY | 2025-05-14 09:40 | XMS_ITS | Patient Health Record ---
Author Organization [facility] Address [address] [place] [address] Care Team Providers Care Record Tabulating Clerk Name Role Phone Elvia Bellamy MD Primary Care Provider Kishan Chavarria Unavailable [phone] Allergies Allergen (clinical drug ingredient) Drug/Non Drug Allergy documented on EMR Reaction Allergy Type Onset Date Status seasonal,perfumes an d smoke (uncoded) Unknown Allergy Active Reason For Referral No Information Medications Medication SIG (Take, Route, Frequency, Duration) Notes Start Date End Date Status Multi Vitamin/Minerals - as directed Ora lly once a day Active Allergy 10 MG 1 tablet Orally Once a day for 30 day(s) Active Breo Ellipta 100-25 MCG/INH 1 puff Inhal ation Once a day Active Vitamin D 2000 UNIT 1 tablet Orally Once a day for 30 day(s) Active Calcium 600 MG 1 tablet with meals Orally Once a day Active Vitamin C 500 MG 1 tablet Orally Once a day for 30 day(s) Active buPROPion HCl ER (SR) 200 MG 1 tablet Orally twice a day Active Rosuvastatin Calcium 5 MG 1 tablet Orall y Once a day Active Meloxicam 15 MG TAKE 1 TABLET BY EVERY DAY Oral Once a day/prn Active Aspir-81 81 MG 1 tablet Orally Once a day for 30 day(s) Active Immunizations Vaccine Route Administration Date Status Comme nts Influenza Unknown 08/22/2018 Administered Social History Tobacco Use: Social History Observation Description Date Details (start date - stop date) Former Smoker NA - NA Tobacco Use/Smoking Question Answer Notes Patient is a former smoker How long has it been since you last smoked? > 10 years Alcohol Screen Question Answer Notes Did you have a drink contain ing alcohol in the past year? Yes How often did you have a dri nk containing alcohol in the past year? 2 to 4 times a month (2 points) How many drinks did you have on a typical day when you were drinking in the past year? 1 or 2 drinks (0 point) How often did you have 6 or more drinks on one occasion in the past year? Never (0 point) Points 2 Interpretation Negative Section Notes: Nonsmoker; no sig alcohol Problems Problem Type SNOMED Code ICD Code Onset Dates Problem Status W/U Status Risk Notes Problem [id number] Encounter for screening for malignant neoplasm of colon (Z12.11) Active confirmed Problem [id number] Pre-procedural examination (Z01.818) Active confirmed Plan Of Treatment Future Test Test Name Order Date COLONOSCOPY 03/20/2019 Insurance Providers Payer Name Payer Address Payer Phone Subscriber Number Group Number Insured Name Patient Relationship to Insured Coverage Start Date Coverage End Date [facility] [address] [address] [place] [phone] [id number] EASTON KILLIAN Self - patient is the insured Medical (General) History Medical History History ICD Code Denies OR,DM,CVA,renal disease Asthma Hyperlipidemia Neg. 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
== END 2025-05-14 09:13 | disposition home or self-care (01) ==
LOC: HO.MAMMO 09:12
PROVIDERS: PCP Internal Medicine; Visit Provider Internal Medicine
DX: Z12.31 Encounter for screening mammogram for malignant neoplasm of breast (principal)
CPT/HCPCS: 77063; 77067

== ENCOUNTER → 2025-05-14 09:30 | Outpatient (BNV) | payer OTHER, SELFPAY | PROVIDERS: PCP Internal Medicine; Visit Provider Internal Medicine | DX: Z12.31 Encounter for screening mammogram for malignant neoplasm of breast (principal) | CPT/HCPCS: 77063; 77067 ==

== ENCOUNTER 2025-08-11 13:03 | Outpatient (AMB) | payer MEDICARE, SELFPAY ==
--- NOTE | 2025-08-11 13:13 | A.OFFPC_ITS ---
Vital Signs 08/11/25 13:14 Height 5 ft Weight 180 lb BMI 35.2 BP 126/80 Blood Pressure Location Lt brachial Position Sitting Respiration 18 Pulse 78 Pulse Source Pulse Oximeter Temp 97.6 F Temp Source Oral Pulse Oximetry (%) 98 Oxygen Delivery Method Room Air Intake Visit Reasons: PE, resched Intake Note: Pt is here today for PE. Allergies No Known Allergies Allergy (Mild, Verified 08/11/25 13:16) NONE Medication List - Last Reconciled 08/11/25 by Elvia Bellamy MD albuterol sulfate 90 mcg/actuation 2 puffs inhalation Q6H PRN alendronate 70 mg PO QWEEK aspirin 81 mg PO DAILY benzonatate 100 mg PO TID Breo Ellipta 100-25 mcg/dose (fluticasone furoate-vilanterol) 1 inh inhalation DAILY NS ibuprofen 800 mg PO Q8H ibuprofen 800 mg PO Q8H multivitamin 1 tab PO DAILY rosuvastatin 20 mg PO DAILY sertraline 50 mg PO DAILY Tobacco use date assessed: 08/11/25 Fall risk assessment: No Falls in past year Last assessed Fall Risk: 08/11/25 Dental Screening Dental Screen Date: 01/01/25 HPI PE, resched HPI Details Pt presents for PE. Pt c/o neck and LBP for 1 week after cleaning the office. Pt's brother has been dxd with metastatic colon cancer and patient has been involved with his care and feeling overwhelmed. Depression is controlled on current medications. Patient has been taking rosuvastatin for hyperlipidemia. She has not been taking Breo regularly and denies a need to use albuterol more than twice a month. [facility] Medical History (Updated 08/11/25 @ 16:03 by Elvia Bellamy MD) Normal pelvic exam Hx of mammogram Annual physical exam OA (osteoarthritis) of knee Anxiety Sciatica of right side Depression Hyperlipidemia Osteoporosis Chronic asthma Surgical History H/O colonoscopy S/P aneurysm repair History of repair of rotator cuff History of knee surgery History of adenoidectomy History of tonsillectomy Family History Father Cancer Lung cancer Substance use disorder Mother FH: HTN (hypertension) Cancer Substance use disorder Brother Substance use disorder Social History Housing: House Patient Tobacco Use Status: Former Tobacco user e-Cigarette/Vaping Use: Never Used service: No Current occupational status: employed Cognitive needs: No Hearing needs: No Vision needs: No Questionnaire PHQ-9 Over the last 2 weeks, how often have you been bothered by any of the following problems? 1. Little interest or pleasure in doing things: several days 2. Feeling down, depressed, or hopeless: several days 3. Trouble falling or staying asleep, or sleeping too much: several days 4. Feeling tired or having little energy: several days 5. Poor appetite or overeating: several days 6. Feeling bad about yourself - or that you are a failure or have let yourself or your family down: not at all 7. Trouble concentrating on things, such as reading the newspaper or watching television: not at all 8. Moving or speaking so slowly that other people could have noticed. Or the opposite - being so fidgety or restless that you have been moving around a lot more than usual: not at all 9. Thoughts that you would be better off or of hurting yourself in some way: not at all Total score: 5 Depression Screening Interpretation: Negative Depression Screening Done: Yes Source: Developed by Drs. Kishan Awad, Felicia Awad, Steve Hernandez and colleagues, with an educational dayanara from [employer]. Thrive Questionnaire Date Thrive assessed: 12/31/24 I am a: Patient What is your living situation today?: I have a steady place to live Within the past 12 months, did the food you bought not last and you didn't have the money to get more?: Never true Within the past 12 months, did you worry whether your food would run out before you got money to buy more?: Never true Do you have trouble paying for medicines?: No Do you have trouble getting transportation to medical appointments?: No Do you have trouble paying your heating and electricity bill?: No Do you have trouble taking care of your child, family member or friend?: No Do you have trouble with day-to-day activities such as bathing, preparing meals, shopping, managing finances, etc.?: No Are you currently unemployed and looking for a job?: No Are you interested in more education?: No Please select the resources that you would like help with: None Currently or been in a relationship where the following occur: No concerns reported THRIVE Score: 0 CLAY-7 AMB Questionnaire CLAY-7 Date CLAY - 7 assessed: 08/11/25 Feeling nervous, anxious, or on edge: 0 = Not at all Not being able to stop or control worryin = More than half the days Worrying too much about different things: 2 = More than half the days Trouble relaxin = More than half the days Being so restless that it is hard to sit still: 1 = Several days Becoming easily annoyed or irritable: 1 = Several days Feeling afraid as if something awful might happen: 0 = Not at all Total CLAY-7 score (0-4 normal; 5-9 mild; 10-14 moderate; 15-21 severe): 8 Source: Developed by Drs. Kishan Awad, Felicia Awad, Steve Hernandez and colleagues, with an educational dayanara from [employer]. CLAY-7 Assessment Billing CLAY-7 Assessment Tool: CLAY-7 Assessment 14802 Review of Systems Const All systems reviewed & are unremarkable except as noted in HPI and below Eyes Reports no additional complaints ENT Reports no additional complaints Card Reports no additional complaints Resp Reports no additional complaints GI Reports no additional complaints Reports no additional complaints Physical exam (Primary Care) Vital Signs: Last Vital Signs Temp 97.6 F 08/11/25 13:14 Pulse 78 08/11/25 13:14 Resp 18 08/11/25 13:14 BP 126/80 08/11/25 13:14 Pulse Ox 98 08/11/25 13:14 Oxygen Delivery Method Room Air 08/11/25 13:14 BMI result Body Mass Index 35.2 Tobacco/Smoking Status: Tobacco use Status Tobacco use date assessed 08/11/25 08/11/25 13:21 Patient Tobacco Use Status Former Tobacco user 08/11/25 13:14 e-Cigarette/Vaping Use Never Used 08/11/25 13:14 PHQ-9: PHQ-9 Score PHQ-9: Total score 5 08/11/25 13:21 Depression Screening Interpretation: Negative Thrive Assessment: Date of Thrive Assessment Date Thrive assessed 12/31/24 08/11/25 13:14 Currently or been in a relationship where the following occur: No concerns reported Const General: no acute distress HENMT Head: Yes normal to inspection Ears: hearing grossly normal bilaterally Face and sinus: Yes normal facial exam Mouth: Normal oral and palatal mucosa present Eyes General: appearance normal, both eyes and all related structures Neck Neck: Yes no lymphadenopathy and Yes supple Resp Effort & Inspection: normal respiratory effort Auscultation: clear to auscultation bilaterally Cardio Rhythm: regular rhythm Heart sounds: S1 normal heart sound present and S2 normal heart sound present GI Inspection: Yes normal to inspection Palpation (GI): Soft to palpation Percussion: Yes normal to percussion Auscultation: normal bowel sounds Coding Level of Care Code Est Pt Prev Care >65y(15715) Diagnoses Hyperlipidemia E78.5 Annual physical exam Z00.00 Osteoporosis M81.0 Neck pain M54.2 Additional Codes CLAY-7 Assessment Billing - CLAY-7 Assessment Tool: CLAY-7 Assessment 73680 ([id number]) Assessment & Plan Assessment & Plan (1) Hyperlipidemia: Code(s): E78.5 - Hyperlipidemia, unspecified Category: Medical Plan: Continue Crestor return for fasting blood work (2) Annual physical exam: Code(s): Z00.00 - Encounter for general adult medical examination without abnormal findings Category: Medical Plan: Well-balanced diet regular physical activity discussed with the patient she is up-to-date with the mammogram and will be referred to GI for colonoscopy (3) Osteoporosis: Comment: took Alendronate >5 yrs, will stop 07/2025, repeat DEXA Code(s): M81.0 - Age-related osteoporosis without current pathological fracture Category: Medical Plan: Obtain DEXA patient was advised to stop alendronate because she has been taking it for over 5 years. Patient was advised to continue vitamin-D weight-bearing exercises (4) Neck pain: Code(s): M54.2 - Cervicalgia Category: Medical Plan: Meloxicam and baclofen are prescribed. patient declined physical therapy Orders: Orders Complete Blood Count Auto Diff Today E78.5 - Hyperlipidemia, unspecified, Z00.00 - Encounter for general adult medical examination without abnormal findings Vitamin D 25-OH Total Today E78.5 - Hyperlipidemia, unspecified, Z00.00 - Encounter for general adult medical examination without abnormal findings XR DEXA axial skeleton Today M81.0 - Age-related osteoporosis without current pathological fracture Comprehensive [place]. Panel Fast Today E78.5 - Hyperlipidemia, unspecified, Z00. 00 - Encounter for general adult medical examination without abnormal findings Lipid Panel Today E78.5 - Hyperlipidemia, unspecified, Z00.00 - Encounter for general adult medical examination without abnormal findings TSH reflex Free T4 Today E78.5 - Hyperlipidemia, unspecified, Z00.00 - Encounter for general adult medical examination without abnormal findings Referrals Gastroenterology Referral Z00.00 - Encounter for general adult medical examination without abnormal findings Medications: New baclofen 10 mg PO BEDTIME 30 tabs 0RF meloxicam 15 mg PO DAILY 30 tabs 0RF Discontinued benzonatate Discontinued Reason: Doctor's Order 100 mg PO TID 90 caps 0RF R05.1 - Acute cough ibuprofen Discontinued Reason: Doctor's Order 800 mg PO Q8H 60 tabs 0RF S97.121A - Crushing injury of right lesser toe(s), initial encounter
[2025-08-11 13:14] VITALS: BP 126/80; PULSE 78; RESP 18; TEMP 36.4; O2SAT 98; BMI 35.2
--- OUTSIDE RECORDS SUMMARY | 2025-08-11 16:33 | XMS_ITS | Patient Health Record ---
Author Organization [facility] Address [address] [place] [address] Care Team Providers Care Cargo Services Coordinator Name Role Phone Elvia Bellamy MD Primary Care Provider Kishan Chavarria Unavailable [phone] Allergies Allergen (clinical drug ingredient) Drug/Non Drug Allergy documented on EMR Reaction Allergy Type Onset Date Status seasonal,perfumes an d smoke (uncoded) Unknown Allergy Active Reason For Referral No Information Medications Medication SIG (Take, Route, Frequency, Duration) Notes Start Date End Date Status Multi Vitamin/Minerals - as directed Ora lly once a day Active Allergy 10 MG 1 tablet Orally Once a day; Duration: 30 day(s) Active Breo Ellipta 100-25 MCG/INH 1 puff Inhal ation Once a day Active Vitamin D 2000 UNIT 1 tablet Orally Once a day; Duration: 30 day(s) Active Calcium 600 MG 1 tablet with meals Orally Once a day Active Vitamin C 500 MG 1 tablet Orally Once a day; Duration: 30 day(s) Active buPROPion HCl ER (SR) 200 MG 1 tablet Orally twice a day Active Rosuvastatin Calcium 5 MG 1 tablet Orall y Once a day Active Meloxicam 15 MG TAKE 1 TABLET BY ANNE TH EVERY DAY Oral Once a day/prn Active Aspir-81 81 MG 1 tablet Orally Once a day; Duration: 30 day(s) Active Immunizations Vaccine Route Administration [...] Problem Status W/U Status Risk Notes Problem Screening for malignant neoplasm of colon ([id number]) Encounter for screening for malignant neoplasm of colon (Z12.11) Active confirmed Problem Pre-procedure evaluation check ([id number]) Pre-procedural examination (Z01.818) Active confirmed Plan Of Treatment Future Test Test Name Order Date COLONOSCOPY 03/20/2019 Insurance Providers Payer Name Payer Address Payer Phone Subscriber Number Group Number Insured Name Patient Relationship to Insured Coverage Start Date Coverage End Date [facility] [address] [place] [phone] [id number] EASTON KILLIAN Self - patient is the insured Medical (General) History Medical History History ICD Code Denies [place],DM,CVA,renal disease Asthma Hyperlipidemia Neg. 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
== END 2025-08-11 16:04 | disposition home or self-care (01) ==
LOC: HO.HMCC 13:04
PROVIDERS: PCP Internal Medicine; Visit Provider Internal Medicine
DX: Z00.00 Encounter for general adult medical examination without abnormal findings (principal); E78.5 Hyperlipidemia, unspecified; M81.0 Age-related osteoporosis without current pathological fracture; M54.2 Cervicalgia

== ENCOUNTER → 2025-08-11 13:03 | Outpatient (BNVA) | payer MEDICARE, SELFPAY | PROVIDERS: PCP Internal Medicine; Visit Provider Internal Medicine | DX: Z00.00 Encounter for general adult medical examination without abnormal findings (principal); E78.5 Hyperlipidemia, unspecified; M81.0 Age-related osteoporosis without current pathological fracture; M54.2 Cervicalgia; R05.1 Acute cough; S97.121A Crushing injury of right lesser toe(s), initial encounter; X58.XXXA Exposure to other specified factors, initial encounter; Y93.9 Activity, unspecified; Y92.9 Unspecified place or not applicable; Y99.9 Unspecified external cause status; Z79.899 Other long term (current) drug therapy | CPT/HCPCS: 96127; 99397 ==